=== PATIENT | male | born 1995 | race Caucasian/White ===

== ENCOUNTER 2021-03-20 00:35 | Emergency (ER) | payer OTHER, SELFPAY ==
[2021-03-20 00:39] VITALS: BP 140/62; PULSE 54; RESP 16; TEMP 36.7; O2SAT 99
--- NOTE | 2021-03-20 00:44 | W.ED.GENAD ---
Discharge Plan Disposition Patient Disposition: HOME Condition: Good Discharge Details Clinical Impression: Dental infection Primary Care Provider: None,None ED Provider: Nas Jon Home Meds and New Rx's Prescriptions: New clindamycin HCl 150 mg capsule 450 mg PO Q6H 7 Days Qty: 84 RF: 0 Discharge Instructions Instructions: Toothache (ED) Additional Instructions: At this time you do have evidence of a dental infection in your back molar/wisdom teeth. Please take the antibiotic as directed. Please follow-up quickly with your dentist as soon as possible. Take Tylenol and Motrin as needed for pain. We have given you the medication Zofran to help with nausea as needed. Please make sure to eat yogurt with live culture like activity when you take the antibiotic clindamycin to help prevent any diarrhea. If you notice any worsening of your symptoms, or any new symptoms such as vomiting, diarrhea, fever, chills, shortness of breath, chest pain, numbness, weakness, or fainting , please return immediately to the emergency department for reevaluation. Please follow up with your primary care provider as soon as possible for reassessment and reevaluation. As always, it was a pleasure participating in your medical care today. Discharge Data Discharge Date/Time-TO BE ENTERED AT DEPARTURE: 03/20/21 01:01 Medical Decision Making 25-year-old male with a past medical history of dental caries presents today for dental pain. Patient states that for the last few months he has had notable cavities in his wisdom teeth, however he has not yet had them repaired or removed. He [place] a scheduled appointment [place], but not appear. This evening he got notably nauseous and had pain in the right upper posterior molars. Came to the ER for further assessment. He denies fever or chills, he denies chest pain. No other complaints at this time. Exam demonstrates notable dental caries in the patient's wisdom teeth. No periapical abscess. No abdominal tenderness or other abnormality. Symptoms consistent with dental caries. Will treat with ibuprofen, clindamycin, recommend continued close follow-up with his PCP. And dentist. Patient will be given Zofran as needed for nausea as he does feel slightly nauseous. Discussed red flags which to return. I have extensively reviewed the treatment plan and discharge instructions with the patient. I have addressed all patient concerns at this time. The patient was made aware of what symptoms to monitor for that would warrant a return to the emergency department. Discussed the plan with the patient, they demonstrate verbal understanding and agreement with our assessment and plan at this time. The documentation in this chart was dictated using [employer]! dictation software. Please excuse any dictation errors. HPI General Date/Time Provider Initiated Documentation: 03/20/21 00:36. HPI Narrative: 25-year-old male with a past medical history of dental caries presents today for dental pain. Patient states that for the last few months he has had notable cavities in his wisdom teeth, however he has not yet had them repaired or removed. He does have a scheduled appointment to have [place] hometown, but not appear. This evening he got notably nauseous and had pain in the right upper posterior molars. Came to the ER for further assessment. He denies fever or chills, he denies chest pain. No other complaints at this time. Related Data Home Medications Medication Instructions Recorded Confirmed clindamycin HCl 450 mg PO Q6H 7 Days #84 cap 03/20/21 Previous Rx's Medication Instructions Recorded clindamycin HCl 450 mg PO Q6H 7 Days #84 cap 03/20/21 Allergies Allergy/AdvReac Type Severity Reaction Status Date / Time amoxicillin Allergy Intermediate Other (See Unverified 03/20/21 00:45 Comment) Review of Systems All systems reviewed & are unremarkable except as noted in HPI and below PFSH Social History Smoking/Tobacco Use Status: Current every day Tobacco Type: cigarettes Smoking risk assessment performed?: Yes Alcohol Intake: never Drug use: Daily Substance use type: marijuana Do you feel safe at home: Yes Exam Narrative Exam Narrative: 1.Const: Well-nourished, Well-developed, appearing stated age 2.Eyes: PERRL, no conjunctival injection, and symmetrical lids. 3.ENT: Atraumatic external nose and ears. Moist MM. Neck: Symmetric, trachea midline, No thyromegaly. Notable dental caries in the wisdom teeth throughout. No evidence of periapical abscess on palpation 4.CVS: +S1/S2, No murmurs or gallops. Peripheral pulses 2+ and equal in all extremities. Brisk capillary refill in all extremities. 5.RESP: Unlabored respiratory effort. Clear to auscultation bilaterally. No wheezes rales or rhonchi 6.GI: Soft, Nontender/Nondistended, No hepatosplenomegaly. No guarding or rebound. 7.MSK: Normocephalic/Atraumatic, Extremities w/o deformity or ttp No cyanosis or clubbing, Normal movement of all extremities 8.Skin: Warm, Dry. No rashes or lesions. 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 Sensation grossly intact, no focal neurologic deficits. 10.Psych: (AAO) x3. Appropriate mood and affect
[2021-03-20] MEDS: Clindamycin 150 MG CAP, 12 CAPS/BTL 450 MG PO (00:53)
[2021-03-20] MEDS: Ondansetron O.D.T. 4 MG TABEF, 3 TABS/BTL PO (00:54)
[2021-03-20] MEDS: Ibuprofen 800 MG TAB (01:05)
== END 2021-03-20 01:01 | disposition home or self-care (01) ==
LOC: ER 01:14
PROVIDERS: Emergency Provider Student in an Organized Health Care Education/Training Program
DX: K04.7 Periapical abscess without sinus (principal); R11.0 Nausea
CPT/HCPCS: 99283